=== PATIENT | male | born 1930 | race Caucasian/White ===

== ENCOUNTER 2016-09-23 04:08 | Inpatient (IN) | payer OTHER ==
--- NOTE | 2016-09-23 04:36 | EDPHY ---
H & P Stated Complaint: mid substernal CP beginning at 2100 last night Time Seen by Provider: 09/23/16 04:20 HPI/ROS: CHIEF COMPLAINT: Chest pain HISTORY OF PRESENT ILLNESS: Patient is an 86-year-old man whose brought him to the emergency department complaining of chest pain and shortness of breath. His symptoms began around 9:00 p.m. last night. He does have a history of chronic atrial fibrillation on Eliquis and placement of a single lead [place] pacemaker in April of last year. Also history of prostate cancer, hypertension, obstructive sleep apnea Graves disease. The patient states that he wears 2 L at home a baseline for a history of atrial fibrillation. He denies history of pulmonary disease. He has not had a fever. He did have a dry cough recently but it has now resolved. He has some mild lower extremity edema at baseline but it is not worsened. He was lying in bed getting ready asleep when it began. He did have a catheterization at some point but states that it was many years ago. REVIEW OF SYSTEMS: Constitutional: denies: chills, fever, recent illness, recent injury EENTM: denies: blurred vision, double vision, nose congestion Respiratory: See HPI Cardiac: See HPI Gastrointestinal/Abdominal: denies: abdominal pain, diarrhea, nausea, vomiting, blood streaked stools Genitourinary: denies: dysuria, frequency, hematuria, pain Musculoskeletal: denies: joint pain, muscle pain Skin: denies: lesions, rash, jaundice, bruising Neurological: denies: headache, numbness, paresthesia, tingling, dizziness, weakness Hematologic/Lymphatic: denies: blood clots, easy bleeding, easy bruising Immunologic/allergic: denies: HIV/AIDS, transplant EXAM: GENERAL: Lying in bed, mildly obese, HEAD: Atraumatic, normocephalic. EYES: Pupils equal round and reactive to light, extraocular movements intact, sclera anicteric, conjunctiva are normal. ENT: TMs normal, nares patent, oropharynx clear without exudates. Moist mucous membranes. NECK: Normal range of motion, supple without lymphadenopathy or JVD. LUNGS: Breath sounds clear to auscultation bilaterally and equal. No wheezes rales or rhonchi. HEART: Regular rate and rhythm without murmurs, rubs or gallops. ABDOMEN: Soft, nontender, normoactive bowel sounds. No guarding, no rebound. No masses appreciated. BACK: No CVA tenderness, no spinal tenderness, step-offs or deformities EXTREMITIES: Normal range of motion, no pitting or edema. No clubbing or cyanosis. NEUROLOGICAL: Cranial nerves II through XII grossly intact. Normal speech, normal gait. 5/5 strength, normal movement in all extremities, normal sensation PSYCH: Normal mood, normal affect. SKIN: Warm, dry, normal turgor, no visible rashes or lesions. 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 prostate CA, asthma. sz, asthma, a fib, pacemaker implanted - Family History Significant Family History: Hypertension - Social History Smoking Status: Never smoked Alcohol Use: Sober Drug Use: None Constitutional: Initial Vital Signs Temperature (C) 36.4 C 09/23/16 04:25 Heart Rate 69 09/23/16 04:25 Respiratory Rate 20 09/23/16 04:25 Blood Pressure 179/102 H 09/23/16 04:25 O2 Sat (%) 87 L 09/23/16 04:25 O2 Delivery Mode Nasal Cannula O2 (L/minute) 2 Allergies/Adverse Reactions: Sulfa (Sulfonamide Antibiotics) Allergy (Severe, Verified 05/15/16 22:15) Swelling/neck,face,throat sulfamethoxazole [From Bactrim] Allergy (Severe, Verified 05/15/16 22:15) Swelling/neck,face,throat trimethoprim [From Bactrim] Allergy (Severe, Verified 05/15/16 22:15) Swelling/neck,face,throat chloromycetin Allergy (Unknown, Uncoded 05/15/16 22:15) Unknown Home Medications: Medication Instructions Recorded Apixaban [Eliquis] 5 mg PO BID 02/26/16 Fluticasone Nasal [Flonase Nasal 2 sprays NASAL DAILY PRN 02/26/16 [place]] Methimazole [Tapazole 5MG (*)] 2.5 mg PO BID 05/15/16 lamoTRIgine [LamICTAL 100 MG (*)] 100 mg PO BID 05/15/16 Metoprolol Tartrate [Lopressor 25 12.5 mg PO BID #30 tab 05/17/16 mg (*)] Albuterol [Proventil Inhaler HFA 1 puffs IH Q6H PRN 09/23/16 (*)] Fluticasone Hfa 110 Mcg [Flovent 1 puffs IH DAILY PRN 09/23/16 110 MCG Hfa MDI (*)] Medical Decision Making - Diagnostics EKG Interpretation: An EKG obtained and was read and documented in trace view. Please see trace view for full reading and report. AFib versus paced rhythm with bundle branch block pattern with repolarization abnormality, not significantly changed from previous. A repeat EKG obtained and was read and documented in trace view. Please see trace view for full reading and report. AFib versus today ventricular rhythm with left bundle branch block and repolarization abnormality similar to previous Imaging: X-ray: chest x-ray was obtained. I viewed the images myself on the PACS system. My interpretation of the images is: Similar to previous. The radiologist interpretation is pending. ED Course/Re-evaluation: Patient's troponin is elevated. He is currently pain free. Will admit to the hospital for further workup and diagnostics. Discussed the case with Dr. Rosana Westfall who accepts admission. 5:55 a.m. the patient had a moment of chest pain they returned. A repeat EKG was completed which is unchanged. Differential Diagnosis: Partial list of the Differential diagnosis considered include but were not limited to; acute coronary disease, PE, arrhythmia, pneumonia and although unlikely based on the history and physical exam, I also considered pneumothorax , sepsis, pericardial tamponade, dissection. - Data Points Laboratory Results: Laboratory Results 09/23/16 04:20 09/23/16 04:20 Medications Given: Discontinued Medications Amlodipine Besylate (Norvasc) 2.5 mg PO DAILY [facility] Stop: 03/22/17 08:59 Last Admin: 09/24/16 10:36 Dose: Not Given Apixaban (Eliquis) 5 mg PO BID [facility] Stop: 03/22/17 10:29 Last Admin: 09/23/16 10:42 Dose: Not Given Aspirin (Aspirin) 325 mg PO EDNOW ONE Stop: 09/23/16 05:28 Last Admin: 09/23/16 05:34 Dose: Not Given Aspirin (Aspirin) 324 mg PO EDNOW ONE Stop: 09/23/16 05:34 Last Admin: 09/23/16 05:34 Dose: 324 mg Diazepam (Valium) 5 mg PO ONCALL ONE Stop: 09/23/16 13:38 Last Admin: 09/23/16 15:00 Dose: Not Given Diphenhydramine HCl (Benadryl) 25 mg PO ONCALL ONE Stop: 09/23/16 13:38 Last Admin: 09/23/16 15:00 Dose: Not Given Furosemide (Lasix Injection) 20 mg IVP ONCE ONE Stop: 09/24/16 09:22 Last Admin: 09/24/16 10:36 Dose: 20 mg Metoprolol Tartrate (Lopressor) 12.5 mg PO BID [facility] Stop: 03/22/17 05:59 Last Admin: 09/23/16 10:43 Dose: 12.5 mg Metoprolol Tartrate (Lopressor) 25 mg PO BID [facility] Stop: 03/22/17 20:59 Last Admin: 09/24/16 10:34 Dose: Not Given Nitroglycerin (Nitrostat) 0.4 mg SL ONCE ONE Stop: 09/23/16 13:02 Last Admin: 09/23/16 13:05 Dose: 1 tab Departure - Departure Disposition: [facility] Acute Clinical Impression: Chest pain Qualifiers: Qualifier Code: (R07.9) Chest pain, unspecified Condition: Fair
[2016-09-23 04:38] LABS: % IMMATURE GRANULYOCYTES 0.4 % (0.0-1.1); ABSOLUTE IMMATURE GRANULOCYTES 0.05 10^3/uL (0.00-0.10); ADD DIFF? NO; ADD MORPH? NO; ADD SCAN? NO; ATYPICAL LYMPHOCYTE FLAG 0 (0-99); FRAGMENT RBC FLAG 0 (0-99); HEMATOCRIT 43.2 % (40.0-51.0); HEMOGLOBIN 14.5 g/dL (13.7-17.5); LEFT SHIFT FLG 0 (0-99); LIPEMIA HEMOLYSIS FLAG 80 (0-99); MEAN CELL HEMOGLOBIN 30.1 pg (27.9-34.1); MEAN CELL HEMOGLOBIN CONCENTR. 33.6 g/dL (32.4-36.7); MEAN CELL VOLUME 89.8 fL (81.5-99.8); MEAN PLATELET VOLUME 11.1 fL (8.7-11.7); PLATELET CLUMPS FLAG 30 (0-99); PLATELET COUNT 229 10^3/uL (150-400); RED BLOOD CELL COUNT 4.81 10^6/uL (4.40-6.38); RED CELL DISTRIBUTION WIDTH 13.4 % (11.5-15.2)
[2016-09-23 04:46] LABS: ALANINE AMINOTRANSFERASE 35 IU/L (21-72); ALBUMIN 4.4 g/dL (3.5-5.0); ALKALINE PHOSPHATASE 89 IU/L (38-126); ANION GAP 10 mEq/L (8-16); ASPARTATE AMINOTRANSFERASE 34 IU/L (17-59); BILIRUBIN,TOTAL 1.8 mg/dL (0.1-1.4); BILIRUBIN-CONJUGATED 0.5 mg/dL (0.0-0.5); BILIRUBIN-UNCONJUGATED 1.3 mg/dL (0.0-1.1); CALCIUM 9.4 mg/dL (8.5-10.4); CARBON DIOXIDE 27 mEq/l (22-31); CHLORIDE 103 mEq/L (97-110); GLOMERULAR FILTRATION RATE > 60; GLUCOSE 115 mg/dL (70-100); POTASSIUM 4.4 mEq/L (3.5-5.2); SODIUM 140 mEq/L (134-144); TOTAL PROTEIN 7.1 g/dL (6.3-8.2)
[2016-09-23 04:50] LABS: INR 1.5 (0.83-1.16); PROTIME(PATIENT) 18.1 SEC (12.0-15.0)
[2016-09-23 04:51] LABS: APTT 32.3 SEC (23.0-38.0)
--- NOTE | 2016-09-23 04:51 | CPEKG ---
Heart Rate: 72 RR Interval: 833 QRSD Interval: 154 QT Interval: 432 QTC Interval: 473 QRS [place]: 117 T Wave [place]: -42 EKG Severity - ABNORMAL ECG - EKG Impression: ACCELERATED JUNCTIONAL RHYTHM EKG Impression: NONSPECIFIC INTRAVENTRICULAR CONDUCTION DELAY EKG Impression: EXTENSIVE ANTERIOR INFARCT, RECENT EKG Impression: Left bundle branch block, similar to previous Electronically Signed By: Los Lovell 23-Sep-2016 05:07:40
[2016-09-23 04:57] LABS: TROPONIN I 0.052 ng/mL (0-0.034)
[2016-09-23] MEDS ORDERED: ACETAMINOPHEN 325 MG TAB PO PRN (05:27)
[2016-09-23] MEDS ORDERED: ASPIRIN 325 MG TAB PO ONE (05:27)
[2016-09-23] MEDS ORDERED: ONDANSETRON 4 MG/2 ML VIAL IVP PRN (05:27)
[2016-09-23] MEDS ORDERED: ONDANSETRON DISINTEGRATING 4 MG TAB PO PRN (05:27)
[2016-09-23] MEDS ORDERED: ASPIRIN 81 MG CHEWABLE TAB ONE (05:30)
[2016-09-23] MEDS ORDERED: ASPIRIN 81 MG CHEWABLE TAB PO ONE (05:33)
--- NOTE | 2016-09-23 06:05 | CPEKG ---
Heart Rate: 68 RR Interval: 882 QRSD Interval: 150 QT Interval: 452 QTC Interval: 481 QRS [place]: 116 T Wave [place]: 22 EKG Severity - ABNORMAL ECG - EKG Impression: ATRIAL FIBRILLATION EKG Impression: VENTRICULAR PREMATURE COMPLEX EKG Impression: NONSPECIFIC INTRAVENTRICULAR CONDUCTION DELAY EKG Impression: EXTENSIVE ANTERIOR INFARCT, RECENT Electronically Signed By: Los Lovell 23-Sep-2016 06:13:43
[2016-09-23] MEDS: NITROGLYCERIN 2% 1 GM PACKET TP SCH ×3 (06:28→19:11)
[2016-09-23] MEDS ORDERED: NITROGLYCERIN 2% 1 GM PACKET ONE (06:28)
[2016-09-23 06:47] LABS: CHOLESTEROL 182 mg/dL (140-220); CHOLESTEROL/HDL RATIO 2.89 RATIO (1.00-4.97); HIGH DENSITY LIPOPROTEIN 63 mg/dL (40-65); LOW DENSITY LIPOPROTEIN 107 mg/dL (80-100); NON-HIGH DENSITY LIPOPROTEIN 119 mg/dL (90-129); TRIGLYCERIDE 61 mg/dL (40-150); VERY LOW DENSITY LIPOPROTEINS 12 mg/dL (8-25)
[2016-09-23] MEDS ORDERED: MAALOX/LIDO/HYOSC GI COCKTAIL 55 ML BOTTLE PO PRN (06:59)
--- NOTE | 2016-09-23 07:04 | PDGENHP ---
History and Physical - Chief Complaint chest pain - History of Present Illness 86 yo male with h/o A fib and sick sinus syndrome with recent pacemaker placement in 04/2016 presents to ED with chest pressure. This started yesterday at 4 pm while at rest. He describes the pain as feeling like a ball stuck in his chest. No radiation. No associated nausea or diaphoresis. He does reports associated SOB. He uses nocturnal O2 at home at 2 LPM due to h/o sleep apnea. He denies pleuritic chest pain. He is more hoarse than usual. Denies other symptoms of indigestion. No fevers, chills, headache, vision changes, abdominal pain or N/V/D. In the ED, his EKG is unchanged from prior, LBBB is present. His initial troponin is slightly elevated at 0.052. He is admitted to the hospital for further evaluation. History Information - Allergies/Home Medication List Allergies/Adverse Reactions: Sulfa (Sulfonamide Antibiotics) Allergy (Severe, Verified 05/15/16 22:15) Swelling/neck,face,throat sulfamethoxazole [From Bactrim] Allergy (Severe, Verified 05/15/16 22:15) Swelling/neck,face,throat trimethoprim [From Bactrim] Allergy (Severe, Verified 05/15/16 22:15) Swelling/neck,face,throat chloromycetin Allergy (Unknown, Uncoded 05/15/16 22:15) Unknown Home Medications: Amlodipine Besylate [Norvasc] 2.5 mg PO DAILY 02/26/16 [Last Taken 05/15/16] Apixaban [Eliquis] 5 mg PO BID 02/26/16 [Last Taken 05/15/16 08:00] Fluticasone Nasal [Flonase Nasal [place]] 2 sprays NASAL DAILY PRN 02/26/16 [Last Taken 01/29/16 09:00] Methimazole [Tapazole 5MG (*)] 2.5 mg PO DAILY 05/15/16 [Last Taken 05/15/16] lamoTRIgine [LamICTAL 100 MG (*)] 100 mg PO BID 05/15/16 [Last Taken 05/15/16 08 :00] I have personally reviewed and updated: family history, medical history, social history, surgical history - Past Medical History atrial fibrillation, hypertension, hyperlipidemia Additional medical history: sleep apnea, hyperthyroids / graves disease, sick sinus syndrome - Surgical History Additional surgical history: pacemaker placement 04/2016 - Family History Positive for: non-pertinent - Social History Smoking Status: Never smoked Alcohol Use: None Drug Use: None Review of Systems ROS: 10pt was reviewed & negative except for what was stated in HPI & below Physical Exam Temp Pulse Resp BP Pulse Ox 36.4 C 65 20 165/97 H 94 09/23/16 04:25 09/23/16 06:51 09/23/16 06:51 09/23/16 06:51 09/23/16 06:51 Constitutional: no apparent distress Eyes: PERRL Ears, Nose, Mouth, Throat: moist mucous membranes Cardiovascular: regular rate and rhythym, no murmur, rub, or gallop Respiratory: no respiratory distress, clear to auscultation Gastrointestinal: normoactive bowel sounds, soft, non-tender abdomen Skin: warm Musculoskeletal: full muscle strength Neurologic: AAOx3 Psychiatric: interacting appropriately Lab Data & Imaging Review 09/23/16 04:20 09/23/16 04:20 WBC 11.35 10^3/uL (3.80-9.50) H 09/23/16 04:20 RBC 4.81 10^6/uL (4.40-6.38) 09/23/16 04:20 Hgb 14.5 g/dL (13.7-17.5) 09/23/16 04:20 Hct 43.2 % (40.0-51.0) 09/23/16 04:20 MCV 89.8 fL (81.5-99.8) 09/23/16 04:20 MCH 30.1 pg (27.9-34.1) 09/23/16 04:20 MCHC 33.6 g/dL (32.4-36.7) 09/23/16 04:20 RDW 13.4 % (11.5-15.2) 09/23/16 04:20 Plt Count 229 10^3/uL (150-400) 09/23/16 04:20 MPV 11.1 fL (8.7-11.7) 09/23/16 04:20 Neut % (Auto) 78.8 % (39.3-74.2) H 09/23/16 04:20 Lymph % (Auto) 12.1 % (15.0-45.0) L 09/23/16 04:20 [place] % (Auto) 5.8 % (4.5-13.0) 09/23/16 04:20 Eos % (Auto) 2.2 % (0.6-7.6) 09/23/16 04:20 Baso % (Auto) 0.7 % (0.3-1.7) 09/23/16 04:20 Nucleat RBC Rel Count 0.0 % (0.0-0.2) 09/23/16 04:20 Absolute Neuts (auto) 8.94 10^3/uL (1.70-6.50) H 09/23/16 04:20 Absolute Lymphs (auto) 1.37 10^3/uL (1.00-3.00) 09/23/16 04:20 Absolute Monos (auto) 0.66 10^3/uL (0.30-0.80) 09/23/16 04:20 Absolute Eos (auto) 0.25 10^3/uL (0.03-0.40) 09/23/16 04:20 Absolute Basos (auto) 0.08 10^3/uL (0.02-0.10) 09/23/16 04:20 Absolute Nucleated RBC 0.00 10^3/uL (0-0.01) 09/23/16 04:20 Immature Gran % 0.4 % (0.0-1.1) 09/23/16 04:20 Immature Gran # 0.05 10^3/uL (0.00-0.10) 09/23/16 04:20 PT 18.1 SEC (12.0-15.0) H 09/23/16 04:20 INR 1.50 (0.83-1.16) H 09/23/16 04:20 APTT 32.3 SEC (23.0-38.0) 09/23/16 04:20 Sodium 140 mEq/L (134-144) 09/23/16 04:20 Potassium 4.4 mEq/L (3.5-5.2) 09/23/16 04:20 Chloride 103 mEq/L (97-110) 09/23/16 04:20 Carbon Dioxide 27 mEq/l (22-31) 09/23/16 04:20 Anion Gap 10 mEq/L (8-16) 09/23/16 04:20 BUN 20 mg/dL (7-23) 09/23/16 04:20 Creatinine 1.0 mg/dL (0.7-1.3) 09/23/16 04:20 Estimated GFR > 60 09/23/16 04:20 Glucose 115 mg/dL (70-100) H 09/23/16 04:20 Calcium 9.4 mg/dL (8.5-10.4) 09/23/16 04:20 Total Bilirubin 1.8 mg/dL (0.1-1.4) H 09/23/16 04:20 Conjugated Bilirubin 0.5 mg/dL (0.0-0.5) 09/23/16 04:20 Unconjugated Bilirubin 1.3 mg/dL (0.0-1.1) H 09/23/16 04:20 AST 34 IU/L (17-59) 09/23/16 04:20 ALT 35 IU/L (21-72) 09/23/16 04:20 Alkaline Phosphatase 89 IU/L (38-126) 09/23/16 04:20 Troponin I 0.052 ng/mL (0-0.034) H 09/23/16 04:20 Total Protein 7.1 g/dL (6.3-8.2) 09/23/16 04:20 Albumin 4.4 g/dL (3.5-5.0) 09/23/16 04:20 Triglycerides 61 mg/dL (40-150) 09/23/16 04:20 Cholesterol 182 mg/dL (140-220) 09/23/16 04:20 Cholesterol Risk Factr 0.5 (0.2-1.0) 09/23/16 04:20 LDL Cholesterol, Calc 107 mg/dL (80-100) H 09/23/16 04:20 LDL Risk Factor 0.8 (0.2-1.0) 09/23/16 04:20 VLDL Cholesterol 12 mg/dL (8-25) 09/23/16 04:20 Non-HDL Cholesterol 119 mg/dL (90-129) 09/23/16 04:20 HDL Cholesterol 63 mg/dL (40-65) 09/23/16 04:20 LDL/HDL Ratio 1.70 RATIO (1.00-3.64) 09/23/16 04:20 Cholesterol/HDL Ratio 2.89 RATIO (1.00-4.97) 09/23/16 04:20 Lipase 43.0 IU/L (23-300) 09/23/16 04:20 Assessment & Plan Assessment: Chest pain - His cardiac risk factors include hypertension, hyperlipidemia, age and gender. He is chest pain free at this time. EKG is unchanged from prior, but difficult to interpret with LBBB. His initial troponin is elevated at 0.052. -trend troponin, repeat EKG -keep npo until next trop in case he needs angiogram -ASA, BB, statin -nitro-bid and prn morphine for pain -he is anti-coagulated on eliquis -cardiology consult planned -also considered GERD and will try GI cocktail and pepcid A fib - rate controlled on metoprolol. continue eliquis. Hypertension - will give outpt metoprolol and norvasc along with nitroglycerin. 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
[2016-09-23] MEDS ORDERED: METOPROLOL TARTRATE 25 MG TAB ONE (08:12)
--- NOTE | 2016-09-23 08:16 | DX ---
Chest, PA and Lateral History: Epigastric pain and pressure Comparison: May 17, 2016 Findings: There is new left lower lobe consolidation with what is likely a small pleural effusion. Ca rdiomegaly remains along with an excellently positioned unipolar pacer device. The pulmonary vascular ity is not particularly plethora. There may be a tiny right pleural effusion. Lung volumes remain lar ge consistent with underlying COPD. Impression: 1. Suspect left lower lobe pneumonia. 2. Compensated CHF.
[2016-09-23] MEDS: ATORVASTATIN CALCIUM 40 MG TAB PO SCH ×2 (08:20→09:07)
[2016-09-23] MEDS ORDERED: FAMOTIDINE 20 MG TAB ONE ×2 (08:23→09:04)
[2016-09-23] MEDS ORDERED: APIXABAN 5 MG TAB PO SCH ×2 (09:00→10:30)
[2016-09-23] MEDS: FAMOTIDINE 20 MG TAB PO SCH ×2 (09:03→20:46)
[2016-09-23] MEDS ORDERED: ALBUTEROL 60 PUFFS/8 GM MDI IH PRN (10:02)
[2016-09-23] MEDS ORDERED: FLUTICASONE HFA 110 MCG MDI IH PRN (10:02)
[2016-09-23] MEDS ORDERED: FLUTICASONE NASAL 120 SPRAYS/16 GM MDI EACHNARE PRN (10:02)
[2016-09-23] MEDS: METOPROLOL TARTRATE 25 MG TAB PO SCH ×3 (10:43→20:46)
--- NOTE | 2016-09-23 10:43 | ECHO ---
[id number] + + [address] : : [place] [address] : : [phone] + Adult Echocardiographic Report + --------+ :Name: WILI ROMERO EStudy Date: 09/23/2016 09:11 AM : : Hospital Admission Number: [id number] Locati on: ER11: :: 1930 Gender: Male Height: 69 in : :Age: 86 yrs Race: WH Weight: 192 lb : :Reason For Study: Eval LV Fx : : BSA: 2.0 meter s2 : :History: Chest Pain, Positive Troponins : + --------+ MMode/2D Measurements & Calculations IVSd: 1.3 cm LVIDd: 5.3 cm FS: 14.8 % Ao root diam: LVPWd: 1.4 cm LVIDs: 4.5 cm EDV(Teich): 3.5 cm 136.5 ml ACS: 1.7 cm ESV(Teich): 93.9 ml EF(Teich): 31.2 % LVLd ap4: 8.0 cm SV(MOD-sp4): EDV(MOD-sp4): 30.0 ml 112.0 ml LVLs ap4: 7.0 cm ESV(MOD-sp4): 82.0 ml EF(MOD-sp4): 26.8 % Normal Measurement Values: + + :LVIDd (3.5-5.7cm) IVSd (0.6-1.1cm) LVPWd (0.6-1.1cm) Aortic Root (2.0-3.7cm)Left Atrium (1.5-4.0cm): :LV Vol(d) (76-115ml) LV Vol(s) (29-48ml) Ejec Fraction (50-65%)PV [place] (0.6- 1.2m/s) TV [place]ur (0.4-1.0m/s) : :MV E [place] (0.8-1.0m/s)MV A [place] (0.3-1.0m/s)LVOT [place] (0.7-1.2m/s) Asc Ao Mayur ( 0.9-1.8m/s) : + + Doppler Measurements & Calculations Ao V2 max: AI max mayur: LV V1 max: PA V2 max: 141.0 cm/sec 413.0 cm/sec 53.3 cm/sec 80.1 cm/sec Ao max P.0 mmHgAI max P.2 mmHg LV V1 max PG: PA max PG: AI dec slope: 1.1 mmHg 2.6 mmHg 143.0 cm/sec2 AI P1/2t: 845.9 msec TR max mayur: 305.0 cm/sec TR max P.2 mmHg RAP systole: 5.0 mmHg RVSP(TR): 42.2 mmHg Left Ventricle The left ventricle is normal in size. There is mild concentric left ventricular hypertrophy. There is Doppler evidence for diastolic dysfunction. Ejection Fraction = 30 to 35%. The basal and mid anteroseptum and posterior segmetns are hypokinetic. Right Ventricle There is a pacemaker lead in the right ventricle. The right ventricle is normal in size and function. Atria The left atrium is mildly dilated. Right atrial size is normal. Mitral Valve The mitral valve is normal. There is no mitral valve stenosis. There is trace to mild mitral regurgitation. Tricuspid Valve There is trace to mild tricuspid regurgitation. Right ventricular systolic pressure is 42mmHg. There is Doppler evidence for mild pulmonary hypertension. Aortic Valve There is mild aortic valve calcification. There is no aortic stenosis. Mild aortic regurgitation. Pulmonic Valve The pulmonic valve is not well visualized. There is no pulmonic valvular regurgitation. Great Vessels The aortic root is normal size. Pericardium/Pleural There is no pericardial effusion. There is a small pleural effusion. Conclusion A complete two-dimensional transthoracic echocardiogram was performed (2D, M-mode, Doppler and color flow Doppler). 1. The left ventricle is normal in size. There is mild concentric left ventricular hypertrophy. The Ejection Fraction = 30 to 35%. The basal and mid anteroseptum and posterior segmetns are hypokinetic. 2. The left atrium is mildly dilated. 3. The mitral valve is normal. There is trace to mild mitral regurgitation. 4. There is mild aortic valve calcification. There is no aortic stenosis. Mild aortic regurgitation. 5. Right ventricular systolic pressure is 42mmHg. 6. No old studies for comparison. Final Reading Physician: Ronald Pace MD electronically signed on 09/23/2016 10:42 AM Ordering Physician: Rosana Westfall Performed By: Petr Rod, DENISSECS
[2016-09-23] MEDS: lamoTRIgine 100 MG TAB PO SCH ×2 (11:42→20:47)
--- NOTE | 2016-09-23 12:02 | GCON ---
[f rep st] CONSULTATION DATE OF CONSULTATION: 09/23/2016 REASON FOR CONSULTATION: We have been asked by Dr. Westfall to evaluate this patient with a chief com plaint of chest pain. HISTORY OF PRESENT ILLNESS: The patient is an 86-year-old gentleman with risk factors including age and hypertension, who presents with a chief complaint of chest pain. The patient was in his usual st ate of health until the day prior to admission, when he began to experience chest pain. The chest pa in was described above as a ball being stuck in the center of his chest. The chest pain did not radi ate. It was not associated with nausea, vomiting and diaphoresis. Patient reports that the chest pa in was initially at a very low level. At approximately 2 a.m. when he woke up in bed, he began to ex perience more significant chest discomfort, prompting him to seek further evaluation. On arrival in the emergency department, he had an EKG performed, demonstrating atrial fibrillation with a paced rhy thm. His initial troponin was mildly elevated at 0.052. Patient became pain-free while in the emerg ency department. We have been consulted to help in the further management of this patient. Patient reports a fairly limited physical activity at home. He does get up and go grocery shopping and does some walking around the house. He typically denies symptoms of chest discomfort with this activity. There is no history of orthopnea or PND. Patient does report a history of atrial fibrillation and i s status post pacemaker placement. He is currently on oral anticoagulation for his atrial fibrillati on. PAST MEDICAL HISTORY: 1. Hypertension. 2. Atrial fibrillation. 3. Obstructive sleep apnea. 4. 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 5. Peripheral neuropathy. 6. Degenerative joint disease. MEDICATIONS: 1. Eliquis. 2. Flonase. 3. Lamictal. 4. Methimazole. 5. Metoprolol. 6. ProAir. ALLERGIES: 1. Chloramphenicol. 2. Sulfonamide. SOCIAL HISTORY: Patient lives with his . He does not smoke. FAMILY HISTORY: Noncontributory. REVIEW OF SYSTEMS: A 10-point review of systems is negative except as noted in HPI. PHYSICAL EXAM: GENERAL: Patient is resting comfortably in bed at this time. He does not appear to be in acute distress. VITAL SIGNS: Temperature is afebrile. Pulse is 78, blood pressure 147/101, r espiratory rate 18, SaO2 98% on 2 L nasal cannula. HEENT: Patient wears glasses. Normocephalic, at raumatic. Extraocular muscles intact. NECK: No bruits auscultated. LUNGS: Clear to auscultation bilaterally. CARDIOVASCULAR: Regular rate and rhythm. S1, S2. No murmurs, rubs or gallops. ABDOM EN: Soft, nontender. Normoactive bowel sounds. No hepatosplenomegaly noted. Aorta could not be ad equately palpated. EXTREMITIES: Left greater than right lower extremity edema. SKIN: Evidence of stasis on the pretibial surfaces. NEUROLOGIC: Patient is awake, alert and oriented x3. LABORATORY: White blood cell count 11.35, hemoglobin 14.5, hematocrit 43.2, platelet count 229. INR 1.50. Sodium 140, potassium 4.4, chloride 103, CO2 27, BUN 20, creatinine 1.0. Troponin 0.052 to 0 .043. LDL is mildly elevated at 107. EKG demonstrates atrial fibrillation with paced rhythm. Bedside echocardiogram demonstrates normal l eft ventricular size with evidence of left ventricular hypertrophy. There is segmental wall motion a bnormality involving the anterior septum as well as posterior wall. ASSESSMENT AND PLAN: The patient is an 86-year-old gentleman with: 1. Acute coronary syndrome. Patient presents with an acute coronary syndrome. He is currently pain -free at this time. His EKG demonstrates a paced rhythm. His initial troponin is mildly elevated at 0.052. His subsequent troponin has decreased to 0.043. His echocardiogram was notable for reduced left ventricular systolic function with multiple segmental wall motion abnormalities. Reviewed risks and benefits of cardiac catheterization for further risk stratification with the patient and his wif e. Will arrange to have this performed. Ideally, this would occur after his Eliquis is washed out t o reduce his bleeding risk. Anticipate performing the procedure on Tuesday afternoon versus Tuesday. Would consider urgent angiogram for recurrent symptoms. 2. Hypertension. The patient is currently moderately hypertensive. We will plan on increasing his metoprolol for improved blood pressure control. 3. Hyperlipidemia. Patient's LDL cholesterol is 107. Based on the probable presence of coronary ar cristo disease, ideal LDL would be less than 70. We will plan on initiating statin therapy. /[id number]/MODL
[2016-09-23] MEDS ORDERED: NITROGLYCERIN 0.4 MG BTL SL ONE ×2 (13:01)
[2016-09-23] MEDS ORDERED: ALBUTEROL 3 ML DEYVIAL IH PRN (13:02)
--- NOTE | 2016-09-23 13:07 | CPEKG ---
Heart Rate: 65 RR Interval: 923 QRSD Interval: 150 QT Interval: 452 QTC Interval: 470 QRS [place]: 118 EKG Severity - ABNORMAL ECG - EKG Impression: ATRIAL FIBRILLATION, V-RATE 64-65 EKG Impression: NONSPECIFIC INTRAVENTRICULAR CONDUCTION DELAY EKG Impression: LATERAL INFARCT, AGE INDETERMINATE EKG Impression: ST ELEVATION, PROBABLE ANTERIOR INJURY Electronically Signed By: Pepe Brink 23-Sep-2016 18:15:55
[2016-09-23] MEDS ORDERED: NITROGLYCERIN/D5W/250 ML BOTTLE IV ONE (13:29)
[2016-09-23] MEDS ORDERED: DIAZEPAM 5 MG TAB PO ONE (13:37)
[2016-09-23] MEDS ORDERED: TEMAZEPAM 15 MG CAP PO PRN (13:37)
[2016-09-23] MEDS ORDERED: diphenhydrAMINE 25 MG CAP PO ONE (13:37)
--- NOTE | 2016-09-23 13:37 | HOSPPROG ---
Hospitalist Progress Note Assessment/Plan: 86 yo M w/hx of a fib/sss s/p PM presenting with chest pain and elevated trop # ACS: with left sided chest pain and trop elevation on admission, trop trending down, but pain has returned with even minor exertion. ECG personally reviewed, dynamic changes noted on ecg with e/o anterior infarct and st elevation. Cardiology consulted with plans for medical management for now and cath in coming 1-2 days, however given recurrent chest pain, may need to be sooner # chest pain: as above, nitro and morphine prn pain, will consider nitro gtt if continues # a fib/sss: with PPM in place, ecg personally reviewed and interpreted as above , continue metoprolol # chronic medical issues: htn, hld # dispo: IP status, high risk given presenting issues Objective: Vital Signs Temp Pulse Resp BP Pulse Ox 36.8 C 77 22 H 162/95 H 95 09/23/16 12:18 09/23/16 12:18 09/23/16 12:18 09/23/16 12:18 09/23/16 12:18 PT 18.1 SEC (12.0-15.0) H 09/23/16 04:20 INR 1.50 (0.83-1.16) H 09/23/16 04:20 ICD10 Worksheet Patient Problems: Problems Problem Status Diagnosed Chest pain Acute Near syncope Acute Sick sinus syndrome Acute
[2016-09-23] MEDS ORDERED: LIDOCAINE 1% 30 ML SDV ONE (13:38)
[2016-09-23] MEDS ORDERED: MIDAZOLAM 2 MG/2 ML VIAL ONE (13:39)
[2016-09-23] MEDS ORDERED: fentaNYL 100 MCG/2 ML INJ ONE (13:39)
[2016-09-23] MEDS ORDERED: IOPAMIDOL (ISOVUE-370) 150 ML BTL IV ONE (13:39)
[2016-09-23] MEDS ORDERED: NS 1,000 ML IV SCH (13:45)
--- NOTE | 2016-09-23 13:56 | CPEKG ---
Heart Rate: 103 RR Interval: 583 QRSD Interval: 84 QT Interval: 360 QTC Interval: 471 QRS [place]: -31 T Wave [place]: 16 EKG Severity - ABNORMAL ECG - EKG Impression: ATRIAL FIBRILLATION, V-RATE 79-115 EKG Impression: LEFT AXIS DEVIATION EKG Impression: CONSIDER ANTERIOR INFARCT Electronically Signed By: Herminio Richards 23-Sep-2016 15:00:51
[2016-09-23] MEDS ORDERED: ONDANSETRON 4 MG/2 ML VIAL ONE (13:59)
[2016-09-23] MEDS ORDERED: NITROGLYCERIN/DEXTROSE 250 ML IV SCH (14:00)
[2016-09-23] MEDS ORDERED: METOCLOPRAMIDE 10 MG/2 ML VIAL ONE (14:00)
[2016-09-23] MEDS ORDERED: FUROSEMIDE 20 MG/2 ML VIAL ONE ×2 (14:20→14:21)
--- NOTE | 2016-09-23 14:58 | CPIP ---
[f rep st] INVASIVE CARDIAC PROCEDURE DATE OF PROCEDURE: 09/23/2016 PROCEDURES: 1. Coronary angiography. 2. Left ventriculography. INDICATION: Acute coronary syndrome with elevated troponin. ACCESS: The patient was prepped and draped in sterile fashion. 1% lidocaine was used to anesthetize the right inguinal region. A 6-Tai[place]ese introducer sheath was placed selectively into the right commo n femoral artery via modified Seldinger technique. CORONARY ANGIOGRAPHY: A 6-[place] JL4 was advanced through the left main coronary artery and images o btained. The left main coronary artery bifurcated into an LAD and circumflex coronary arteries. The left main coronary artery was short and appeared normal. The left anterior descending coronary arlyn ry gave rise to 3 diagonal branches. The 1st 2 diagonal branches were relatively small. The 3rd henry gonal branch was a large branch. Interestingly enough, the septal perforated came off the 3rd diagon al branch. The left anterior descending coronary artery had mild diffuse disease throughout. There was no stenosis greater than 15%. The first diagonal artery had an ostial 50% stenosis present. The first diagonal artery was small, less than 1.5 mm in diameter. The 2nd diagonal artery was also sma ll, less than 1.5 mm in diameter and also had what appeared to be a 50% stenosis present. The 3rd di agonal artery was a large vessel. The 3rd diagonal artery had a segmental 30% stenosis in the proxim al segment. The circumflex coronary artery was a large vessel. The circumflex coronary artery appea red free of any significant disease. The 1st OM artery was a large vessel. The 1st OM artery had a proximal segmental 30% stenosis present. A 6-[place]ai[place]ese JR4 was advanced through the right coronary arlyn ry and images obtained. The right coronary artery was dominant. The right coronary artery had mild diffuse disease throughout. There was no stenosis greater than 20%. LEFT VENTRICULOGRAPHY: A 6-Taiwanese pigtail catheter was advanced in the left ventricle. There was ob tained left ventricle was normal in size with reduced systolic function. The estimated ejection frac tion was 20-25%. There were multiple segmental wall motion abnormalities, most prominently in the an terolateral and inferior segments. COMPLICATIONS: None. CONCLUSIONS: 1. Mild to moderate coronary artery disease without flow limitation. 2. Severely reduced left ventricular systolic function with multiple segmental wall motion abnormali ties. 3. Elevated left ventricular end-diastolic pressure of 36 mmHg. /[id number]/MODL
--- NOTE | 2016-09-23 16:46 | CPEKG ---
Heart Rate: 57 RR Interval: 1053 QRSD Interval: 138 QT Interval: 484 QTC Interval: 472 QRS [place]: 52 T Wave [place]: 118 EKG Severity - ABNORMAL ECG - EKG Impression: ATRIAL FIBRILLATION EKG Impression: IVCD, CONSIDER ATYPICAL LBBB EKG Impression: PROBABLE LVH WITH SECONDARY REPOL ABNRM EKG Impression: ANTERIOR Q WAVES, POSSIBLY DUE TO LVH Electronically Signed By: Pepe Brink 23-Sep-2016 18:15:27
[2016-09-23] MEDS: METHIMAZOLE 5 MG TAB PO SCH (20:46)
[2016-09-24] MEDS: NITROGLYCERIN 2% 1 GM PACKET TP SCH ×5 (00:16→18:56)
[2016-09-24] MEDS ORDERED: FUROSEMIDE 20 MG/2 ML VIAL IVP ONE (09:21)
[2016-09-24] MEDS: METHIMAZOLE 5 MG TAB PO SCH ×2 (10:33→21:50)
[2016-09-24] MEDS: METOPROLOL TARTRATE 25 MG TAB PO SCH (10:34)
[2016-09-24] MEDS: lamoTRIgine 100 MG TAB PO SCH ×2 (10:34→21:51)
[2016-09-24] MEDS: ATORVASTATIN CALCIUM 40 MG TAB PO SCH (10:35)
[2016-09-24] MEDS: FAMOTIDINE 20 MG TAB PO SCH ×2 (10:35→21:50)
[2016-09-24] MEDS: ASPIRIN 81 MG CHEWABLE TAB PO SCH (10:36)
[2016-09-24 11:37] LABS: ANION GAP 8 mEq/L (8-16); CALCIUM 9.1 mg/dL (8.5-10.4); CARBON DIOXIDE 27 mEq/l (22-31); CHLORIDE 104 mEq/L (97-110); CREATININE 0.9 mg/dL (0.7-1.3); GLOMERULAR FILTRATION RATE > 60; GLUCOSE 131 mg/dL (70-100); POTASSIUM 4.2 mEq/L (3.5-5.2); SODIUM 139 mEq/L (134-144)
[2016-09-24 11:46] LABS: % SATURATION 9 % (20-55); TOTAL IRON BINDING CAPACITY 252 ug/dL (260-490)
--- NOTE | 2016-09-24 12:55 | SOAPPROG ---
SOAP Progress Note Assessment/Plan: Assessment: CHF consultation performed and dictated. See dictation for full thoughts. 86 y/o man with permanent afib and echo in 08/12 showing LVEF 60% and cardiolite stress test 08/12 showing LVEF 46%. Got PPM 05/14 for bradyarrhythmias. He reports he hasn't felt well for last seven months with imbalance, GROSS at 10-20ft, CP and weak. No wt change, PND or syncope. Admitted yesterday with CP and borderline troponin elevation. Echo 09/14 shows LVEF 32% with moderate LVH, mild AI/MR and TR with estimated PAS 42mmHg. LHC yesterday shows mild-moderate non-obstructive CAD with LVEDP 36mmHg. No RHC done. On exam he appears moderately hypervolemic not having CP. REC: 1)stop Amlodipine and start on low dose Coreg and Lisinopril (done this AM). 2)lasix 20mg IV BID 3)Aldactone 25mg PO daily. 4)qAM BMP 5)check random cortisol level for possible adrenal insufficiency contributing to tiredness and low BP 6)check BNP level and TSH with morning labs 7)I suspect he is holding onto 5-7lbs of excess water through body. Probably IV lasix 1-2 more days then change to PO Lasix and home Tuesday PM or Tuesday. 8)will arrange close follow up in [facility] 5-7 days from discharge. 9)PPM check making sure no tachyarrhythmias such as Afib or PMT that could have caused acute decline in LVEF but on tele is in afib in 60-70's. Thanks. 09/24/16 12:48 Objective: Vital Signs Temp Pulse Resp BP Pulse Ox 36.6 C 65 21 H 142/76 H 95 09/24/16 08:00 09/24/16 08:00 09/24/16 08:00 09/24/16 08:00 09/24/16 08:00 Laboratory Results 09/24/16 10:15 09/23/16 09/24/16 09/25/16 05:59 05:59 05:59 Intake Total 396 Output Total 675 Balance -279 PT 18.1 SEC (12.0-15.0) H 09/23/16 04:20 INR 1.50 (0.83-1.16) H 09/23/16 04:20 ICD10 Worksheet Patient Problems: Problems Problem Status Diagnosed Chest pain Acute Near syncope Acute Sick sinus syndrome Acute
[2016-09-24] MEDS: SPIRONOLACTONE 25 MG TAB PO SCH (15:00)
--- NOTE | 2016-09-24 15:05 | HOSPPROG ---
Hospitalist Progress Note Assessment/Plan: 86 yo M w/hx of a fib/sss s/p PM presenting with chest pain and elevated trop # ACS: with left sided chest pain and trop elevation on admission, dynamic ecg changes. s/p cath with diffuse non obstructive cad found, no intervention. Currently cp free, on nitro gtt. # acute systolic heart failure: with most recent EF of 30%, slightly volume overloaded on exam, continue on IV lasix and aldactone for now # permanent a fib/sss: with PPM in place, switched from metoprolol to carvedilol # gait instability/fatigue: patient notes this has been going on for months, pt to evaluate, random cortisol and tsh ordered, will add b12 and hgb a1c. When he is stronger will evaluate his gait to determine if other studies indicated # cad: non obstructive disease noted on cath # htn: bb, lisinopril and dc amlodipine # hld: continue statin # dispo: IP status, high risk given presenting issues Subjective: s/p cardiac cath yesterday, currently chest pain free, eating and feeling fine Objective: Vital Signs Temp Pulse Resp BP Pulse Ox 35.6 C L 68 19 131/78 H 3 L 09/24/16 14:16 09/24/16 14:16 09/24/16 14:16 09/24/16 14:16 09/24/16 14:16 Laboratory Results 09/24/16 10:15 09/23/16 09/24/16 09/25/16 05:59 05:59 05:59 Intake Total 396 Output Total 675 Balance -279 PT 18.1 SEC (12.0-15.0) H 09/23/16 04:20 INR 1.50 (0.83-1.16) H 09/23/16 04:20 awake alert nad anicteric op clear rrr systolic murmur cta dec bs at bases soft nt nd 1+ ble edema warm dry well perfused oriented appropriate - Time Spent With Patient Time Spent with Patient: greater than 35 minutes Time Spent with Patient: Greater than 35 minutes spent on this patients care, greater than 50% of time spent counseling, educating, and coordinating care regarding the above mentioned plan. ICD10 Worksheet Patient Problems: Problems Problem Status Diagnosed Chest pain Acute Near syncope Acute Sick sinus syndrome Acute
--- NOTE | 2016-09-24 15:09 | SOAPPROG ---
BHARAT Progress Note Assessment/Plan: 1. NICM - Pt presents with a new diagnosis of a NICM - His LVEF is approximately 25 to 30% with multiple segmental wall motion abnormalities. Angiogram on 09/23 with moderate non-obstructive CAD. Echocardiogram on 09/23 with no significant valvular abnormalities. Pt is s/p recent pacemaker placement for SSS. ? related to A-fib vs pacemaker vs other. --> Pacemaker base rate decreased on 09/23 to 45 BPM --> TSH, Fe, TIBC, and Ferretin ordered --> Consult Dr. Mccallum 2. CHF - Pt presents with acute systolic CHF exacerbation. Precipitating factors are unclear at this time. Symptoms improved with IV NTG and diuresis. --> Change metoprolol to coreg --> DC amlodipine and start lisinopril --> Continue diuresis 3. CAD - Pt has mild to moderate CAD with out flow limitation. --> Continue secondary prevention with asa, coreg, lisinopril, and atorvastatin. Subjective: No chest pain since admit Dyspnea improved limited ambulation Objective: Vital Signs Temp Pulse Resp BP Pulse Ox 35.6 C L 68 19 131/78 H 3 L 09/24/16 14:16 09/24/16 14:16 09/24/16 14:16 09/24/16 14:16 09/24/16 14:16 Laboratory Results 09/24/16 10:15 09/23/16 09/24/16 09/25/16 05:59 05:59 05:59 Intake Total 396 Output Total 675 Balance -279 PT 18.1 SEC (12.0-15.0) H 09/23/16 04:20 INR 1.50 (0.83-1.16) H 09/23/16 04:20 Physical Exam - Physical Exam General Appearance: alert, no apparent distress Respiratory: crackles Cardiac/Chest: diastolic murmur, irregularly irregular Abdomen: normal bowel sounds, non-tender, soft Skin: normal color Extremities: pedal edema, other (No hematoma or echymosis) Neuro/Psych: alert ICD10 Worksheet Patient Problems: Problems Problem Status Diagnosed Chest pain Acute Near syncope Acute Sick sinus syndrome Acute
[2016-09-24] MEDS: FUROSEMIDE 20 MG/2 ML VIAL IVP SCH (17:36)
--- NOTE | 2016-09-24 17:40 | GCON ---
[f rep st] CONSULTATION CHF CONSULT. DATE OF CONSULTATION: 09/24/2016 REASON FOR CONSULTATION: Evaluate gentleman with acute systolic heart failure and decompensated syst olic heart failure, and recommend future CHF management. HISTORY OF PRESENT ILLNESS: I was asked by Dr. Ronald Pace to consult for the above reasons. The pa fede is an 86-year-old gentleman with longstanding history of hypertension. He had an echo in Decem 2014, which demonstrated an LVEF of 60% with mild aortic, mitral, and tricuspid insufficiency. A Cardiolite stress test in July of 2015 suggested an LVEF of 46%. He has permanent atrial fib rillation and in April of 2016, got a permanent pacemaker for concurrent sick sinus syndrome. He reports he has not been feeling well for about the last 7 months with chronic gait imbalance, dyspne a on exertion at 10-20 feet, chest pain, and leg edema. He was admitted to the hospital yesterday wi th chest pain and a borderline troponin. An updated echo done in August of 2016 demonstrates an LVE F of 32% with mild aortic, mild mitral, and mild tricuspid insufficiency with moderate concentric lef t ventricular hypertrophy and an estimated PA systolic pressure of 42 mmHg. A left heart catheteriza tion yesterday demonstrates mild to moderate nonobstructive coronary artery disease with an LVEDP of 36 mmHg. He still feels tired and has imbalance. He is no longer having chest pain but is still ash rt of breath walking across his hospital room. He was on amlodipine as his main blood pressure medic ine until this hospitalization. PAST MEDICAL HISTORY: Permanent atrial fibrillation with sick sinus syndrome and pacemaker, hyperten kim, hyperlipidemia, mild to moderate coronary artery disease, previous prostate cancer, and chronic hip arthritis. PAST SURGICAL HISTORY: Permanent pacemaker in April of 2016, prostatectomy, and multiple hip verónica geries. CURRENT MEDICATIONS: Aspirin 81 mg per day, Atorvastatin 40 mg per day, Eliquis and Lasix 20 mg IV x 1. ALLERGIES: No known drug allergies. SOCIAL HISTORY: Patient is . He does not smoke or use alcohol. FAMILY HISTORY: Unremarkable for premature coronary artery disease. REVIEW OF SYSTEMS: Patient reports no recent fevers, chills, weight gain, or weight loss. He has no TIA or CVA symptoms. Rest of 10-point review of systems is negative. PHYSICAL EXAM: VITAL SIGNS: Afebrile. Pulse 60 and irregularly irregular, blood pressure 124/70, r espirations 24. Weight 87.0 kg. GENERAL: An older-appearing gentleman in no acute distress without chest pain or using accessory respiratory muscles. NECK: Jugular venous pressure is 7-8 cm. Carot id pulses 2+ bilaterally with no obvious bruits. LUNGS: Occasional crackles at the bases bilaterall y with no obvious wheezes. HEART: Normal PMI. Irregularly irregular rhythm with 1/6 nonradiating s ystolic murmur and no S3. ABDOMEN: Soft and nontender. No guarding or rebound. No ascites. No he patosplenomegaly. EXTREMITIES: Two plus peripheral pulses including femoral and pedal pulses. One plus bilateral pretibial edema. MUSCULOSKELETAL: Moderate kyphosis. NEURO: Normal affect and mood . SKIN: No bleeding or cyanosis. No nuchal rigidity. LABS: White count 11.4, hematocrit 43, platelets 229,000, MCV 90. Sodium 140, potassium 4.4, chlori de 103, bicarb 27, BUN 20, creatinine 1.0, glucose 115. Troponin 0.05. INR 1.5. IMPRESSION: An 86-year-old gentleman with chronic atrial fibrillation and sick sinus syndrome with a pacemaker with new acute systolic heart failure with a left ventricular ejection fraction of 32% and moderate hyperkalemia. RECOMMENDATIONS: 1. Would stop his home amlodipine and start on lisinopril and carvedilol as done today. 2. Would put him on Lasix 20 mg IV q.12 hours. 3. Would start Aldactone 25 mg per day. 4. Would interrogate his pacemaker and make sure he is not having any occult tachyarrhythmia such as atrial fibrillation or pacemaker-induced tachycardia. On telemetry, he has mostly been in atrial fi brillation in the 60s to 70 beats per minute. 5. Would check a random cortisol level to make sure there is no evidence of adrenal insufficiency co ntributing to his tiredness and hypotension. 6. Would check a BNP level and a TSH level. 7. Overall, feel he is probably holding on to about 5-7 pounds of excess fluid through his abdomen a nd body. Would recommend IV Lasix for several more days and then transition him to p.o. Lasix and d ischarged home probably in 2-3 days. We will arrange close followup in the [facility] within 5-7 days from discharge. Thank you for allowing me to participate in the care of this patient. /[id number]/MODL
[2016-09-24] MEDS ORDERED: LORazepam 1 MG TAB PO ONE (18:00)
[2016-09-24] MEDS: CARVEDILOL 6.25 MG TAB PO SCH (18:39)
[2016-09-25] MEDS: NITROGLYCERIN 2% 1 GM PACKET TP SCH ×4 (00:51→17:18)
[2016-09-25 04:46] LABS: % IMMATURE GRANULYOCYTES 0.6 % (0.0-1.1); ABSOLUTE IMMATURE GRANULOCYTES 0.05 10^3/uL (0.00-0.10); ADD DIFF? NO; ADD MORPH? NO; ADD SCAN? NO; ATYPICAL LYMPHOCYTE FLAG 0 (0-99); FRAGMENT RBC FLAG 0 (0-99); HEMATOCRIT 35.9 % (40.0-51.0); HEMOGLOBIN 11.8 g/dL (13.7-17.5); LEFT SHIFT FLG 0 (0-99); LIPEMIA HEMOLYSIS FLAG 80 (0-99); MEAN CELL HEMOGLOBIN 29.4 pg (27.9-34.1); MEAN CELL HEMOGLOBIN CONCENTR. 32.9 g/dL (32.4-36.7); MEAN CELL VOLUME 89.3 fL (81.5-99.8); PLATELET CLUMPS FLAG 0 (0-99); PLATELET COUNT 156 10^3/uL (150-400); RED BLOOD CELL COUNT 4.02 10^6/uL (4.40-6.38); RED CELL DISTRIBUTION WIDTH 13.4 % (11.5-15.2)
[2016-09-25 04:48] LABS: ANION GAP 5 mEq/L (8-16); CALCIUM 8.7 mg/dL (8.5-10.4); CARBON DIOXIDE 30 mEq/l (22-31); CHLORIDE 103 mEq/L (97-110); CREATININE 0.9 mg/dL (0.7-1.3); GLOMERULAR FILTRATION RATE > 60; GLUCOSE 111 mg/dL (70-100); POTASSIUM 3.9 mEq/L (3.5-5.2); SODIUM 138 mEq/L (134-144)
[2016-09-25 05:18] LABS: CORTISOL-AM 7.5 ug/dL (4.5-22.7)
[2016-09-25] MEDS: METHIMAZOLE 5 MG TAB PO SCH ×2 (10:16→21:03)
[2016-09-25] MEDS: SPIRONOLACTONE 25 MG TAB PO SCH (10:18)
[2016-09-25] MEDS: LISINOPRIL 5 MG TAB PO SCH (10:19)
[2016-09-25] MEDS: ATORVASTATIN CALCIUM 40 MG TAB PO SCH (10:19)
[2016-09-25] MEDS: lamoTRIgine 100 MG TAB PO SCH ×2 (10:19→21:03)
[2016-09-25] MEDS: ASPIRIN 81 MG CHEWABLE TAB PO SCH (10:20)
[2016-09-25] MEDS: FAMOTIDINE 20 MG TAB PO SCH ×2 (10:20→21:03)
[2016-09-25] MEDS: FUROSEMIDE 20 MG/2 ML VIAL IVP SCH (10:21)
[2016-09-25] MEDS: CARVEDILOL 6.25 MG TAB PO SCH ×2 (10:24→17:17)
[2016-09-25] MEDS: FUROSEMIDE 40 MG TAB PO SCH (10:24)
--- NOTE | 2016-09-25 10:40 | SOAPPROG ---
BHARAT Progress Note Assessment/Plan: 1. NICM - Pt presents with a new diagnosis of a NICM - His LVEF is approximately 25 to 30% with multiple segmental wall motion abnormalities. Angiogram on 09/23 with moderate non-obstructive CAD. Echocardiogram on 09/23 with no significant valvular abnormalities. Pt is s/p recent pacemaker placement for SSS. ? related to A-fib vs pacemaker vs other. --> Pacemaker base rate decreased on 09/23 to 45 BPM --> TSH, Fe, TIBC, and Ferretin ordered --> Appreciate Dr. Mccallum's input 2. CHF - Pt presents with acute systolic CHF exacerbation. 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 Symptoms improved with diuresis. --> Continue coreg and lisinopril --> Continue diuresis with goal net negative 1 L over next 24 hrs 3. CAD - Pt has mild to moderate CAD with out flow limitation. --> Continue secondary prevention with asa, coreg, lisinopril, and atorvastatin. 4. A-fib - Pt has persistent A-fib. He is managed with a rate control and anticoagulation strategy. Pt is currently rate controlled --> Resume eluiquis today. 09/25/16 10:43 Subjective: No chest pain No orthopnea or PND + edema Objective: Vital Signs Temp Pulse Resp BP Pulse Ox 36.3 C 57 L 20 143/90 H 94 09/25/16 08:55 09/25/16 08:55 09/25/16 08:55 09/25/16 08:55 09/25/16 08:55 Laboratory Results 09/25/16 04:26 09/25/16 04:26 09/24/16 09/25/16 09/26/16 05:59 05:59 05:59 Intake Total 396 1358 Output Total 675 1000 125 Balance -279 358 -125 PT 18.1 SEC (12.0-15.0) H 09/23/16 04:20 INR 1.50 (0.83-1.16) H 09/23/16 04:20 Physical Exam - Physical Exam General Appearance: alert, no apparent distress Respiratory: lungs clear Cardiac/Chest: irregularly irregular Abdomen: normal bowel sounds, non-tender, soft Skin: normal color Extremities: other (L greater than R edema) Neuro/Psych: alert ICD10 Worksheet Patient Problems: Problems Problem Status Diagnosed Chest pain Acute Near syncope Acute Sick sinus syndrome Acute
--- NOTE | 2016-09-25 14:15 | HOSPPROG ---
Hospitalist Progress Note Assessment/Plan: 86 yo M w/hx of a fib/sss s/p PM presenting with chest pain and elevated trop # ACS: presumably with supply/demand mismatch with left sided chest pain and trop elevation on admission, dynamic ecg changes. s/p cath with diffuse non obstructive cad found, no intervention. Currently cp free, on nitro gtt. # acute systolic heart failure: with most recent EF of 30%, slightly volume overloaded on exam, transitioned to oral lasix today and will monitor overnight , if still doing well will likely dc home in am on current regimen. Will evaluate in 90 days to determine need for bivICD # permanent a fib/sss: with PPM in place, switched from metoprolol to carvedilol # gait instability/fatigue: patient notes this has been going on for months, pt to evaluate, cortisol level wnl, tsh wnl, b12 wnl, a1c pending. # cad: non obstructive disease noted on cath, no intervention needed # htn: bb, lisinopril and dc amlodipine # hld: continue statin # dispo: IP status, high risk given presenting issues, likely dc on 09/26 Reviewed care plan with cardiology as above, further hx obtained from patients present at bedside. Subjective: no significant overnight events, patient feeling well today, still with some unsteadiness and not as mentally sharp as usual Objective: Vital Signs Temp Pulse Resp BP Pulse Ox 36.9 C 50 L 25 H 111/59 L 95 09/25/16 11:33 09/25/16 11:33 09/25/16 11:33 09/25/16 11:33 09/25/16 11:33 Laboratory Results 09/25/16 04:26 09/25/16 04:26 09/24/16 09/25/16 09/26/16 05:59 05:59 05:59 Intake Total 396 1358 Output Total 675 1000 125 Balance -279 358 -125 PT 18.1 SEC (12.0-15.0) H 09/23/16 04:20 INR 1.50 (0.83-1.16) H 09/23/16 04:20 awake alert nad anicteric op clear rrr systolic murmur cta dec bs at bases soft nt nd 1+ ble edema warm dry well perfused oriented appropriate - Time Spent With Patient Time Spent with Patient: greater than 35 minutes Time Spent with Patient: Greater than 35 minutes spent on this patients care, greater than 50% of time spent counseling, educating, and coordinating care regarding the above mentioned plan. ICD10 Worksheet Patient Problems: Problems Problem Status Diagnosed Chest pain Acute Near syncope Acute Sick sinus syndrome Acute
[2016-09-25] MEDS: APIXABAN 5 MG TAB PO SCH (21:03)
[2016-09-26] MEDS: NITROGLYCERIN 2% 1 GM PACKET TP SCH ×3 (00:39→12:31)
[2016-09-26 04:37] LABS: % IMMATURE GRANULYOCYTES 0.3 % (0.0-1.1); ABSOLUTE IMMATURE GRANULOCYTES 0.03 10^3/uL (0.00-0.10); ADD DIFF? NO; ADD MORPH? NO; ADD SCAN? NO; ATYPICAL LYMPHOCYTE FLAG 0 (0-99); FRAGMENT RBC FLAG 0 (0-99); HEMATOCRIT 37.5 % (40.0-51.0); HEMOGLOBIN 12.3 g/dL (13.7-17.5); LEFT SHIFT FLG 0 (0-99); LIPEMIA HEMOLYSIS FLAG 80 (0-99); MEAN CELL HEMOGLOBIN 29.9 pg (27.9-34.1); MEAN CELL HEMOGLOBIN CONCENTR. 32.8 g/dL (32.4-36.7); MEAN CELL VOLUME 91.2 fL (81.5-99.8); MEAN PLATELET VOLUME 10.6 fL (8.7-11.7); PLATELET CLUMPS FLAG 0 (0-99); PLATELET COUNT 178 10^3/uL (150-400); RED BLOOD CELL COUNT 4.11 10^6/uL (4.40-6.38); RED CELL DISTRIBUTION WIDTH 13.2 % (11.5-15.2)
[2016-09-26 04:53] LABS: ANION GAP 4 mEq/L (8-16); CALCIUM 8.7 mg/dL (8.5-10.4); CARBON DIOXIDE 30 mEq/l (22-31); CHLORIDE 104 mEq/L (97-110); GLOMERULAR FILTRATION RATE > 60; GLUCOSE 112 mg/dL (70-100); POTASSIUM 4.2 mEq/L (3.5-5.2); SODIUM 138 mEq/L (134-144)
[2016-09-26 07:30] VITALS: BP 122/71; PULSE 50; RESP 14; TEMP 97.3; O2SAT 94
[2016-09-26] MEDS: METHIMAZOLE 5 MG TAB PO SCH (10:03)
[2016-09-26] MEDS: ATORVASTATIN CALCIUM 40 MG TAB PO SCH (10:03)
[2016-09-26] MEDS: SPIRONOLACTONE 25 MG TAB PO SCH (10:04)
[2016-09-26] MEDS: lamoTRIgine 100 MG TAB PO SCH (10:04)
[2016-09-26] MEDS: LISINOPRIL 5 MG TAB PO SCH (10:04)
[2016-09-26] MEDS: APIXABAN 5 MG TAB PO SCH (10:04)
[2016-09-26] MEDS: ASPIRIN 81 MG CHEWABLE TAB PO SCH (10:04)
[2016-09-26] MEDS: FAMOTIDINE 20 MG TAB PO SCH (10:04)
[2016-09-26] MEDS: FUROSEMIDE 40 MG TAB PO SCH (10:05)
[2016-09-26] MEDS: CARVEDILOL 6.25 MG TAB PO SCH (10:05)
--- NOTE | 2016-09-26 10:09 | PDIAF ---
- Diagnosis Code Status: Full Code - Medication Management Discharge Medications: Medications to Continue on Transfer Apixaban [Eliquis] 5 mg PO BID 02/26/16 [Last Taken 09/22/16] Fluticasone Nasal [Flonase Nasal [place]] 2 sprays NASAL DAILY PRN 02/26/16 [Last Taken 01/29/16 09:00] Methimazole [Tapazole 5MG (*)] 2.5 mg PO BID 05/15/16 [Last Taken 09/22/16] lamoTRIgine [LamICTAL 100 MG (*)] 100 mg PO BID 05/15/16 [Last Taken 09/22/16] Albuterol [Proventil Inhaler HFA (*)] 1 puffs IH Q6H PRN 09/23/16 [Last Taken ] Fluticasone Hfa 110 Mcg [Flovent 110 MCG Hfa MDI (*)] 1 puffs IH DAILY PRN 09/23 [Last Taken 09/13/16] Acetaminophen [Tylenol 325mg (*)] 650 mg PO Q4HRS PRN #0 tab 09/26/16 [Last Taken Unknown] Aspirin [Aspirin 81mg (*)] 81 mg PO DAILY #30 tab.chew 09/26/16 [Last Taken Unknown] Atorvastatin Calcium [Lipitor 40 mg (*)] 40 mg PO DAILY #30 tab 09/26/16 [Last Taken Unknown] Carvedilol [Coreg (*)] 6.25 mg PO BIDMEAL #60 tab 09/26/16 [Last Taken Unknown] Famotidine [Pepcid 20 MG (*)] 20 mg PO BID #60 tab 09/26/16 [Last Taken Unknown] Furosemide [Lasix 40 MG (*)] 40 mg PO DAILY #30 tab 09/26/16 [Last Taken Unknown ] Lisinopril [Zestril 5 mg (*)] 5 mg PO DAILY #30 tab 09/26/16 [Last Taken Unknown ] Spironolactone [Aldactone 25 MG (*)] 25 mg PO DAILY #30 tab 09/26/16 [Last Taken Unknown] Discharge Medications: Refer to the Discharge Home Medication list for PRN reason. - Orders Services needed: Home Care, Registered Nurse, Physical Therapy, Occupational Therapy Home Care Face to Face: I certify that this patient was under my care and that I had the required [id number] encounter meeting the encounter requirements on the discharge day. My findings support the fact that the patient is homebound as defined in CMS Chapter 7 Medicare Benefits Manual 30.1.1, The condition of the patient is such that there exists a normal inability to leave home and consequently, leaving home would require a considerable and taxing effort. Diet Recommendation: cardiac -low fat low salt Weigh Patient: weekly - Labs/Radiology BMP Date: 09/28/16 - Follow Up Care Current Providers and Referrals: Salas Angel MD [Primary Care Provider] - As per Instructions
--- NOTE | 2016-09-26 12:33 | SOAPPROG ---
BHARAT Progress Note Assessment/Plan: 1. NICM - Pt presents with a new diagnosis of a NICM - His LVEF is approximately 25 to 30% with multiple segmental wall motion abnormalities. Angiogram on 09/23 with moderate non-obstructive CAD. Echocardiogram on 09/23 with no significant valvular abnormalities. No evidence of hypothyroidism or iron overload. Pt is s/p recent pacemaker placement for SSS. ? related to pacemaker vs a-fib vs other. --> Pacemaker base rate decreased on 09/23 to 45 BPM --> Appreciate Dr. Shelby's input 2. CHF - Pt presents with acute systolic CHF exacerbation. 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 Symptoms improved with diuresis. Weight remains stable with transition to PO lasix. Mild pre-renal azotemia and contraction alkalosis. --> Continue coreg and lisinopril --> Continue gentle diuresis with lasix 40 mg po daily. --> chem 7 prior to appointment with Dr. Shelby next week --> Ok to DC from cardiac stand point. 3. CAD - Pt has mild to moderate CAD with out flow limitation. --> Continue secondary prevention with asa, coreg, lisinopril, and atorvastatin. 4. A-fib - Pt has persistent A-fib. He is managed with a rate control and anticoagulation strategy. Pt is currently rate controlled --> Continue current therapy. Subjective: No chest pain No orthopnea or PND dyspnea at baseline Objective: Vital Signs Temp Pulse Resp BP Pulse Ox 36.3 C 50 L 14 122/71 H 94 09/26/16 07:29 09/26/16 07:29 09/26/16 07:29 09/26/16 07:29 09/26/16 07:29 Laboratory Results 09/26/16 04:23 09/26/16 04:23 09/25/16 09/26/16 09/27/16 05:59 05:59 05:59 Intake Total 1358 1294 Output Total 1000 950 Balance 358 344 PT 18.1 SEC (12.0-15.0) H 09/23/16 04:20 INR 1.50 (0.83-1.16) H 09/23/16 04:20 Physical Exam - Physical Exam General Appearance: alert, no apparent distress Respiratory: lungs clear Cardiac/Chest: irregularly irregular Abdomen: non-tender, soft Skin: normal color Extremities: pedal edema ICD10 Worksheet Patient Problems: Problems Problem Status Diagnosed Chest pain Acute Near syncope Acute Sick sinus syndrome Acute
--- NOTE | 2016-09-26 16:20 | PDDCSUM ---
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 CP free. # acute systolic heart failure: EF of 25-30% and slight volume overload, transitioned from IV to oral lasix and nearing euvolemia. 2/2 AF or pacemaker mediated. Will f/u with cardiology in 1 week. # gait instability/fatigue: w/u including tsh, cortisol, b12 all negative. Improved and likely rleated to above. # permanent AF: continue rate control with coreg and apixiban for AC # cad: non obstructive disease noted on cath, no intervention needed # htn: bb, lisinopril and dc amlodipine # hld: continue statin # hyperthyroid: continue methimazole D/C home with home health F/u BMP in 2 days, f/u with cardiology in next week > 35 minutes spent in care of this patient, more than half in coordination of care
[2016-09-27 03:25] LABS: HEMOGLOBIN A1C 5.9 % (4.0-6.0)
== END 2016-09-26 14:44 | disposition home health service (06) | DRG 286 ==
LOC: F2W 11:53 → OBSVTOIN 13:33
PROVIDERS: ADMIT Hospitalist; ATTEND Internal Medicine
PROC: B2111ZZ Fluoroscopy of Multiple Coronary Arteries using Low Osmolar Contrast (ICD-10-PCS; principal; 2016-09-23)
PROC: 4A023N7 Measurement of Cardiac Sampling and Pressure, Left Heart, Percutaneous Approach (ICD-10-PCS; principal; 2016-09-23)
PROC: B2151ZZ Fluoroscopy of Left Heart using Low Osmolar Contrast (ICD-10-PCS; principal; 2016-09-23)
DX: I25.9 Chronic ischemic heart disease, unspecified (principal); I50.21 Acute systolic (congestive) heart failure; I42.8 Other cardiomyopathies; I48.2 Chronic atrial fibrillation; I25.10 Atherosclerotic heart disease of native coronary artery without angina pectoris; I11.0 Hypertensive heart disease with heart failure; E78.5 Hyperlipidemia, unspecified; G47.33 Obstructive sleep apnea (adult) (pediatric); Z95.0 Presence of cardiac pacemaker; Z99.81 Dependence on supplemental oxygen; Z85.46 Personal history of malignant neoplasm of prostate
CPT/HCPCS: 82607-90; 97161-GP; 97165-GO; 97535-GO; G8978-GP-CK; G8979-GP-CJ; G8987-GO-CK; G8988-GO-CI; J1644; J2250; J2405; J2765; J3010; Q9967

== ENCOUNTER 2016-10-21 09:47 | Outpatient (CLI) | payer OTHER ==
[2016-10-21] MEDS ORDERED: COSYNTROPIN 0.25 MG/2 ML SYRINGE IVP ONE (10:30)
== END 2016-10-21 12:00 | disposition home or self-care (01) ==
LOC: FCATH 09:47
PROVIDERS: ATTEND Internal Medicine Cardiovascular Disease
DX: I48.91 Unspecified atrial fibrillation (principal); I50.22 Chronic systolic (congestive) heart failure; I95.9 Hypotension, unspecified
CPT/HCPCS: J0834

== ENCOUNTER → 2017-01-20 | Outpatient (CLI) | payer OTHER | LOC: BHFA 14:00 | PROVIDERS: ATTEND Internal Medicine Cardiovascular Disease | DX: I50.9 Heart failure, unspecified (principal); I48.91 Unspecified atrial fibrillation ==

== ENCOUNTER 2017-07-09 15:56 | Emergency (ER) | payer OTHER ==
[2017-07-09 16:44] LABS: COLOR YELLOW; LEUKOCYTE ESTERASE,URINE 3+ (NEGATIVE); NITRITE,URINE POSITIVE (NEGATIVE)
[2017-07-09 17:04] LABS: BACTERIA TRACE /hpf (NONE SEEN); MUCUS TRACE /lpf (NONE-1+); WBC,URINE 50-182 /hpf (0-3)
--- NOTE | 2017-07-09 17:13 | EDPHY ---
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 prostate CA, asthma. sz, asthma, a fib, pacemaker implanted - Social History Smoking Status: Never smoked Constitutional: Initial Vital Signs Temperature (C) 37 C 07/09/17 16:08 Heart Rate 107 H 07/09/17 16:08 Respiratory Rate 20 07/09/17 16:08 Blood Pressure 96/56 L 07/09/17 16:08 O2 Sat (%) 92 07/09/17 16:08 O2 Delivery Mode Room Air Allergies/Adverse Reactions: Sulfa (Sulfonamide Antibiotics) Allergy (Severe, Verified 05/15/16 22:15) Swelling/neck,face,throat sulfamethoxazole [From Bactrim] Allergy (Severe, Verified 05/15/16 22:15) Swelling/neck,face,throat trimethoprim [From Bactrim] Allergy (Severe, Verified 05/15/16 22:15) Swelling/neck,face,throat chloromycetin Allergy (Unknown, Uncoded 05/15/16 22:15) Unknown Home Medications: Medication Instructions Recorded Apixaban [Eliquis] 5 mg PO BID 02/26/16 Fluticasone Nasal [Flonase Nasal 2 sprays NASAL DAILY PRN 02/26/16 [place]] Methimazole [Tapazole 5MG (*)] 2.5 mg PO BID 05/15/16 lamoTRIgine [LamICTAL 100 MG (*)] 100 mg PO BID 05/15/16 Albuterol [Proventil Inhaler HFA 1 puffs IH Q6H PRN 09/23/16 (*)] Fluticasone Hfa 110 Mcg [Flovent 1 puffs IH DAILY PRN 09/23/16 110 MCG Hfa MDI (*)] Acetaminophen [Tylenol 325mg (*)] 650 mg PO Q4HRS PRN #0 tab 09/26/16 Aspirin [Aspirin 81mg (*)] 81 mg PO DAILY #30 tab.chew 09/26/16 Atorvastatin Calcium [Lipitor 40 40 mg PO DAILY #30 tab 09/26/16 mg (*)] Carvedilol [Coreg (*)] 6.25 mg PO BIDMEAL #60 tab 09/26/16 Famotidine [Pepcid 20 MG (*)] 20 mg PO BID #60 tab 09/26/16 Furosemide [Lasix 40 MG (*)] 40 mg PO DAILY #30 tab 09/26/16 Lisinopril [Zestril 5 mg (*)] 5 mg PO DAILY #30 tab 09/26/16 Spironolactone [Aldactone 25 MG 25 mg PO DAILY #30 tab 09/26/16 (*)] AMOXICILLIN 07/09/17 levOFLOXACIN [levAQUIN 750 MG (RX)] 750 mg PO DAILY #10 tab 07/09/17 Medical Decision Making ED Course/Re-evaluation: CHIEF COMPLAINT: Urinary retention, abdominal and back pain HISTORY OF PRESENT ILLNESS: The patient is a 87 y/o male complaining of back and abdominal pain. He recently had a tooth pulled and was started on Vicodin. Last night he noticed pain in his back, near his kidney on the right side. Today the pain had moved into his right lower quadrant. The pain does not worsen or improve with palpation. He has associated dysuria and urinary retention. He denies pain in his groin or other associated symptoms. REVIEW OF SYSTEMS: A 10 point review of systems was performed and is negative with the exception of the elements mentioned in the history of present illness. PHYSICAL EXAM: HR, BP, O2 Sat, RR. Temp noted General Appearance: Alert, well hydrated, appropriate, and non-toxic appearing. Head: Atraumatic without scalp tenderness or obvious injury Eyes: Pupils equal, round, reactive to light and accommodation, EOMI, no trauma , no injection. Ears: Clear bilaterally, no perforation, normal landmarks Nose: Atraumatic, no rhinorrhea, clear. Throat: There is no erythema or exudates, no lesions, normal tonsils, mucus membranes moist. Neck: Supple, nontender, no lymphadenopathy. Respiratory: No retractions, no distress, no wheezes, and no accessory muscle use. Lungs are clear to auscultation bilaterally. Cardiovascular: Regular rate and rhythm, no murmurs, rubs, or gallops. Good capillary refill all extremities. Gastrointestinal: Abdomen is soft, nontender, non-distended, no masses, no rebound, no guarding, no peritoneal signs. Musculoskeletal: Normal active ROM of all extremities, atraumatic. Neurological: Alert, appropriate, and interactive. Skin: No rashes, good turgor, no nodules on palpation. Past medical history: Recently started on Vicodin for a tooth removal Past surgical history: Prostate removal Family history: Non-contributory Social history: at bedside, lives in [place], retired DIAGNOSTICS/PROCEDURES/CRITICAL CARE TIME: DIFFERENTIAL DIAGNOSIS: The differential diagnosis for the patient's urinary retention included but was not limited to medication side effect, neurologic causes, outflow obstruction, and infection. MEDICAL DECISION MAKING: The patient is a 87 y/o male complaining of back pain, abdominal pain, and urinary retention after starting Vicodin. He recently had a tooth removed and took Vicodin. Last night he began experiencing pain in his back near his kidney. The pain moved to the front of his body. He has associated urinary retention and dysuria. I suspect infection secondary to urinary retention due to Vicodin. Plan for antibiotics and discharge. - Data Points Laboratory Results: 07/09/17 16:15 Urine Color YELLOW Urine Appearance MODERATELY TURBID Urine pH 5.0 (5.0-7.5) Ur Specific [place] 1.010 (1.002-1.030) Urine Protein 1+ H (NEGATIVE) Urine Ketones NEGATIVE (NEGATIVE) Urine Blood 2+ H (NEGATIVE) Urine Nitrate POSITIVE H (NEGATIVE) Urine Bilirubin NEGATIVE (NEGATIVE) Urine Urobilinogen NEGATIVE EU EU (0.2-1.0) Ur Leukocyte Esterase 3+ H (NEGATIVE) Urine RBC 1-3 /hpf /hpf (0-3) Urine WBC 50-182 /hpf H /hpf (0-3) Ur Epithelial Cells NONE SEEN /lpf /lpf (NONE-1+) Urine Bacteria TRACE /hpf H /hpf (NONE SEEN) Urine Mucus TRACE /lpf /lpf (NONE-1+) Urine Glucose NEGATIVE (NEGATIVE) Medications Given: Discontinued Medications Levofloxacin/Dextrose (Levaquin 750 Mg (Premix)) 150 mls @ 100 mls/hr IV EDNOW ONE PRN Reason: Protocol Stop: 07/09/17 18:45 Last Admin: 07/09/17 17:40 Dose: 150 mls Departure - Departure Disposition: Home, Routine, Self-Care Clinical Impression: Urinary retention Urinary tract infection Qualifiers: Urinary tract infection type: acute cystitis Hematuria presence: without hematuria Qualified Code(s): N30.00 - Acute cystitis without hematuria Condition: Good Instructions: Urinary Tract Infection in Men (ED) Additional Instructions: 1. Take Levaquin as directed. Take the full course even if you have improvement of symptoms. 2. Follow-up with your primary care provider for unimproved symptoms in 2-3 days. 3. Return to the ED for worsening condition. Referrals: Salas Angel MD [Primary Care Provider] - As per Instructions Prescriptions: levOFLOXACIN [levAQUIN 750 MG (RX)] 750 mg PO DAILY #10 tab Report Scribed for: Herminio Richards Report Scribed by: Rachel Arroyo Date of Report: 07/09/17 Time of Report: 17:44
[2017-07-09 19:05] VITALS: BP 142/93; PULSE 56; RESP 16; TEMP 97.9; O2SAT 93
== END 2017-07-09 19:15 | disposition home or self-care (01) ==
DX: N30.00 Acute cystitis without hematuria (principal); B96.89 Other specified bacterial agents as the cause of diseases classified elsewhere; I10 Essential (primary) hypertension; J45.909 Unspecified asthma, uncomplicated; Z79.82 Long term (current) use of aspirin; Z85.46 Personal history of malignant neoplasm of prostate; Z95.0 Presence of cardiac pacemaker
CPT/HCPCS: 96365; 99284; J1956

== ENCOUNTER → 2017-11-24 | Outpatient (CLI) | payer OTHER | LOC: FIMAGING 13:27 | PROVIDERS: ATTEND Internal Medicine | DX: I51.7 Cardiomegaly (principal) ==

== ENCOUNTER → 2018-06-29 | Outpatient (CLI) | payer OTHER | LOC: FIMAGING 13:03 | PROVIDERS: ATTEND Internal Medicine | DX: R91.8 Other nonspecific abnormal finding of lung field (principal); K86.1 Other chronic pancreatitis ==

== ENCOUNTER 2018-07-15 01:09 | Emergency (ER) | payer OTHER ==
[2018-07-15] MEDS ORDERED: ACETAMINOPHEN 500 MG TAB PO ONE (01:26)
--- NOTE | 2018-07-15 01:42 | EDPHY ---
H & P Stated Complaint: fell down stairs in house no LOC left hip pain Time Seen by Provider: 07/15/18 01:16 HPI/ROS: Chief Complaint: Fall, head injury, hip pain HPI: 88-year-old male had a mechanical fall down stairs about 5 hr ago. Patient states he lost his balance and tumbled down a flight of carpeted stairs. He did sustain abrasion on his head on his arms and his left hip. Since that time he has been having worsening left hip pain. He has history of atrial fibrillation in [facility]. He does have a history of hip replacement on that side with multiple revisions. He has been ambulating. No numbness or weakness. No headache. No nausea or vomiting. No neck pain. He has not taken any pain medicine. ROS: 10 systems were reviewed and were negative except those elements noted in the HPI. PMH: Atrial fibrillation, pacemaker placement, hip replacement Social History: No smoking, no alcohol, no recreational drug use Family History: non-contributory Physical Exam: Gen: Awake, Alert, Airway Intact HEENT: Head: Small abrasion on his scalp, no bony tenderness or crepitus Eyes: PERRLA, EOMI Nose: No epistaxis Mouth: Normal dentition, Airway patent Face: No deformity Neck: non-tender, no stepoff, Full ROM without pain Chest: non-tender, lungs CTA Heart: normal heart tones Abd: soft, non-tender, atraumatic Pelvis: non-tender, stable to AP and Lateral compression Back: atraumatic, no midline tenderness Ext: Patient has tenderness over his left lateral hip and proximal lateral thigh. There is a palpable hematoma. There is also ecchymosis. Compartments are soft., full ROM. Patient has several small skin tears on his left forearm. Full range of motion. No bony tenderness or deformity. 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 prostate CA, asthma. sz, asthma, a fib, pacemaker implanted - Social History Smoking Status: Never smoked Constitutional: Initial Vital Signs Temperature (C) 36.7 C 07/15/18 01:10 Heart Rate 54 L 07/15/18 01:10 Respiratory Rate 16 07/15/18 01:10 Blood Pressure 124/56 H 07/15/18 01:10 O2 Sat (%) 97 07/15/18 01:10 O2 Delivery Mode Room Air Allergies/Adverse Reactions: Sulfa (Sulfonamide Antibiotics) Allergy (Severe, Verified 07/15/18 01:13) Swelling/neck,face,throat sulfamethoxazole [From Bactrim] Allergy (Severe, Verified 07/15/18 01:13) Swelling/neck,face,throat trimethoprim [From Bactrim] Allergy (Severe, Verified 07/15/18 01:13) Swelling/neck,face,throat chloromycetin Allergy (Unknown, Uncoded 07/15/18 01:13) Unknown Home Medications: Medication Instructions Recorded Apixaban [Eliquis] 5 mg PO BID 02/26/16 Fluticasone Nasal [Flonase Nasal 2 sprays NASAL DAILY PRN 02/26/16 [place]] Methimazole [Tapazole 5MG (*)] 2.5 mg PO BID 05/15/16 lamoTRIgine [LamICTAL 100 MG (*)] 100 mg PO BID 05/15/16 Albuterol [Proventil Inhaler HFA 1 puffs IH Q6H PRN 09/23/16 (*)] Fluticasone Hfa 110 Mcg [Flovent 1 puffs IH DAILY PRN 09/23/16 110 MCG Hfa MDI (*)] Acetaminophen [Tylenol 325mg (*)] 650 mg PO Q4HRS PRN #0 tab 09/26/16 Aspirin [Aspirin 81mg (*)] 81 mg PO DAILY #30 tab.chew 09/26/16 Atorvastatin Calcium [Lipitor 40 40 mg PO DAILY #30 tab 09/26/16 mg (*)] Carvedilol [Coreg (*)] 6.25 mg PO BIDMEAL #60 tab 09/26/16 Famotidine [Pepcid 20 MG (*)] 20 mg PO BID #60 tab 09/26/16 Furosemide [Lasix 40 MG (*)] 40 mg PO DAILY #30 tab 09/26/16 Lisinopril [Zestril 5 mg (*)] 5 mg PO DAILY #30 tab 09/26/16 Spironolactone [Aldactone 25 MG 25 mg PO DAILY #30 tab 09/26/16 (*)] Medical Decision Making - Diagnostics Imaging Results: CT scan of the head is negative for acute injury per Dr. Ryan. Left hip x-ray shows normal alignment of his hip prosthesis, no acute fractures or dislocations per my interpretation. Critical Care Time: 88-year-old male status post fall downstairs. He has no chest or abdomen injury. Does have a left thigh hematoma. It is not tense. No findings suggestive of compartment syndrome. X-rays negative for acute bony abnormality. He is on Eliquis. CT scan of the head is negative. Injury occurred 5 hr ago and he has not have any evidence of acute active bleeding at this time. Remainder is exam is unremarkable. His hemoglobin and hematocrit are at their baseline. Plan will be to discharge with oral analgesia, acetaminophen, ice, follow up with primary care physician for further evaluation. - Data Points Laboratory Results: Laboratory Results 07/15/18 01:34 07/15/18 01:34 07/15/18 07/15/18 01:34 01:34 WBC 11.32 10^3/uL H 10^3/uL (3.80-9.50) RBC 3.46 10^6/uL L 10^6/uL (4.40-6.38) Hgb 10.8 g/dL L g/dL (13.7-17.5) Hct 32.2 % L % (40.0-51.0) MCV 93.1 fL fL (81.5-99.8) MCH 31.2 pg pg (27.9-34.1) MCHC 33.5 g/dL g/dL (32.4-36.7) RDW 12.9 % % (11.5-15.2) Plt Count 198 10^3/uL 10^3/uL (150-400) MPV 10.2 fL fL (8.7-11.7) Neut % (Auto) 80.8 % H % (39.3-74.2) Lymph % (Auto) 6.9 % L % (15.0-45.0) [place] % (Auto) 7.8 % % (4.5-13.0) Eos % (Auto) 3.6 % % (0.6-7.6) Baso % (Auto) 0.5 % % (0.3-1.7) Nucleat RBC Rel Count 0.0 % % (0.0-0.2) Absolute Neuts (auto) 9.14 10^3/uL H 10^3/uL (1.70-6.50) Absolute Lymphs (auto) 0.78 10^3/uL L 10^3/uL (1.00-3.00) Absolute Monos (auto) 0.88 10^3/uL H 10^3/uL (0.30-0.80) Absolute Eos (auto) 0.41 10^3/uL H 10^3/uL (0.03-0.40) Absolute Basos (auto) 0.06 10^3/uL 10^3/uL (0.02-0.10) Absolute Nucleated RBC 0.00 10^3/uL 10^3/uL (0-0.01) Immature Gran % 0.4 % % (0.0-1.1) Immature Gran # 0.05 10^3/uL 10^3/uL (0.00-0.10) Sodium 141 mEq/L mEq/L (135-145) Potassium 4.4 mEq/L mEq/L (3.3-5.0) Chloride 104 mEq/L mEq/L (97-110) Carbon Dioxide 25 mEq/l mEq/l (22-31) Anion Gap 12 mEq/L mEq/L (6-14) BUN 37 mg/dL H mg/dL (7-23) Creatinine 1.6 mg/dL H mg/dL (0.7-1.3) Estimated GFR 41 Glucose 149 mg/dL H mg/dL (70-100) Calcium 9.4 mg/dL mg/dL (8.5-10.4) Departure - Departure Disposition: Home, Routine, Self-Care Clinical Impression: Contusion, Skin tear of forearm without complication, Scalp contusion Condition: Good Instructions: Skin Avulsion (ED), Hematoma (ED) Additional Instructions: Apply ice to the left hip for 15 min of every hour while awake. You may take acetaminophen, 1000 mg 3 times a day for pain. Follow up with primary care physician in 2-3 days for further evaluation. Return to the emergency department for increasing pain, difficulty walking, worsening headache, nausea, vomiting, or any other concerns. Referrals: Salas Angel MD [Primary Care Provider] - As per Instructions
[2018-07-15 01:46] LABS: PLATELET COUNT 198 10^3/uL (150-400)
[2018-07-15 02:38] VITALS: BP 116/67
== END 2018-07-15 02:36 | disposition home or self-care (01) ==
DX: S70.02XA Contusion of left hip, initial encounter (principal); S00.01XA Abrasion of scalp, initial encounter; S50.812A Abrasion of left forearm, initial encounter; I48.91 Unspecified atrial fibrillation; W10.8XXA Fall (on) (from) other stairs and steps, initial encounter; Y92.9 Unspecified place or not applicable; Y93.9 Activity, unspecified; Z96.642 Presence of left artificial hip joint; Z79.01 Long term (current) use of anticoagulants; Z95.0 Presence of cardiac pacemaker

== ENCOUNTER 2018-12-26 12:40 | Observation (INO) | payer OTHER ==
[2018-12-26] MEDS ORDERED: ACETAMINOPHEN 325 MG TAB PO PRN (16:10)
[2018-12-26] MEDS ORDERED: ONDANSETRON DISINTEGRATING 4 MG TAB PO PRN (16:10)
[2018-12-26] MEDS ORDERED: ONDANSETRON 4 MG/2 ML VIAL IVP PRN (16:10)
[2018-12-26] MEDS ORDERED: ALBUTEROL 60 PUFFS/8 GM MDI IH PRN (21:01)
[2018-12-26] MEDS: lamoTRIgine 100 MG TAB PO SCH (21:23)
[2018-12-27] MEDS ORDERED: CARVEDILOL 3.125 MG TAB PO SCH (08:00)
[2018-12-27] MEDS ORDERED: FUROSEMIDE 20 MG TAB PO SCH (09:00)
[2018-12-27] MEDS ORDERED: SPIRONOLACTONE 25 MG TAB PO SCH (09:00)
[2018-12-27] MEDS ORDERED: FAMOTIDINE 20 MG TAB PO SCH (09:00)
[2018-12-27] MEDS ORDERED: ATORVASTATIN CALCIUM 40 MG TAB PO SCH (09:00)
[2018-12-27] MEDS ORDERED: LISINOPRIL 5 MG TAB PO SCH (09:00)
[2018-12-27] MEDS: lamoTRIgine 100 MG TAB PO SCH (09:16)
[2018-12-28] MEDS ORDERED: METHIMAZOLE 5 MG TAB PO SCH (08:00)
== END 2018-12-27 14:45 | disposition home health service (06) ==
DX: S06.6X9A Traumatic subarachnoid hemorrhage with loss of consciousness of unspecified duration, initial encounter (principal); W06.XXXA Fall from bed, initial encounter; Y92.013 Bedroom of single-family (private) house as the place of occurrence of the external cause; I48.91 Unspecified atrial fibrillation; G47.33 Obstructive sleep apnea (adult) (pediatric); E05.90 Thyrotoxicosis, unspecified without thyrotoxic crisis or storm; I10 Essential (primary) hypertension; E78.5 Hyperlipidemia, unspecified; J45.909 Unspecified asthma, uncomplicated; Z79.01 Long term (current) use of anticoagulants; Z95.0 Presence of cardiac pacemaker
CPT/HCPCS: 70450; 70486; 92523; 97116; 97161; 97166; 99285; G0378

== ENCOUNTER 2019-01-20 09:48 | Emergency (ER) | payer OTHER ==
--- NOTE | 2019-01-20 10:11 | EDPHY ---
H & P Time Seen by Provider: 01/20/19 09:55 HPI/ROS: HPI Concerned about DVT in right leg. 88-year-old male by private vehicle with his . This patient has a history of prior DVT. He is currently on Eliquis. He reports that 3:00 a.m. He developed a cramping sensation in his right calf. He reports that he has had cramping in his calf musculature in the past. He reports that he started using oxygen at night and the cramping has been relieved. There is no history of trauma to the right calf. He denies any loss of sensation or weakness distally. He is concerned that he may have developed another DVT in the right calf. ROS: Constitutional: No fever, no chills. No weakness. Respiratory: No cough. As above. Cardiac: No chest pain, no palpitations. Musculoskeletal: No back pain. No neck pain. No myalgias or arthralgias. Skin: No rashes. Neurological: No focal weakness or altered sensation. Past medical history: Total hip replacements, hypertension, Graves disease, prostate cancer, asthma, seizures, atrial fibrillation, prior DVT, pacemaker. Social history: Nonsmoker. Here with his . No alcohol. Physical Exam: General Appearance: Alert, no distress. This patient is responding to questions appropriately and in full sentences. This patient appears well- hydrated and well-nourished. Eyes: Pupils equal and round no pallor or injection. No lid edema, erythema or injection. Right leg exam: There is some tightness palpated in the right mid calf musculature. No palpable cords. No erythema, warmth or edema noted. Negative Rebecca sign. The right lower extremity is neurovascularly intact. No asymmetric swelling noted in comparison to the left lower extremity. Neurological: Motor sensory function is grossly intact. Cranial nerves are normal. Gait is normal. Skin: Warm and dry, no rashes. Musculoskeletal: Neck is supple and nontender. Extremities are symmetrical. All joints range without pain or impingement. Psychiatric: No agitation. No depression. Database: EKG: Imaging: Right lower extremity ultrasound: Negative for DVT SVT in the right lower extremity. Results discussed with staff radiologist Dr. Alex Pena. Procedures: Emergency department course: Triage vital signs reviewed and are normal. The patient is afebrile. After my evaluation right lower extremity ultrasound to be obtained. 10:40 a.m., the patient was re-evaluated, resting comfortably at this time. I discussed results of his right lower extremity ultrasound with him and his . He feels comfortable going home. His presentation is consistent with a calf muscle cramps. He denies any pain or discomfort at this time. The right lower extremity is neurovascularly intact. He feels comfortable being discharged. I have instructed him to continue taking his medications as prescribed. Follow-up and return to emergency department precautions reviewed. All of his questions were answered. He was discharged from the emergency department in good condition with his . Differential Diagnosis: The differential diagnosis on this patient includes but is not limited to calf musculature cramping, DVT. This represents a partial list of diagnoses considered. These considerations are based on history, physical exam, past history, reassessment and diagnostic testing. Smoking Status: Never smoked Constitutional: Initial Vital Signs Temperature (C) 36.8 C 01/20/19 09:50 Heart Rate 61 01/20/19 09:50 Respiratory Rate 16 01/20/19 09:50 Blood Pressure 113/53 L 01/20/19 09:50 O2 Sat (%) 97 01/20/19 09:50 O2 Delivery Mode Room Air Allergies/Adverse Reactions: Sulfa (Sulfonamide Antibiotics) Allergy (Severe, Verified 07/15/18 01:13) Swelling/neck,face,throat sulfamethoxazole [From Bactrim] Allergy (Severe, Verified 07/15/18 01:13) Swelling/neck,face,throat trimethoprim [From Bactrim] Allergy (Severe, Verified 07/15/18 01:13) Swelling/neck,face,throat chloromycetin Allergy (Unknown, Uncoded 07/15/18 01:13) Unknown Home Medications: Medication Instructions Recorded Apixaban [Eliquis] 5 mg PO BID 02/26/16 Methimazole [Tapazole 5MG (*)] 2.5 mg PO MOTH@0800 05/15/16 lamoTRIgine [LamICTAL 100 MG (*)] 100 mg PO BID 05/15/16 Albuterol [Proventil Inhaler HFA 1 - 2 puffs IH Q6H PRN 09/23/16 (*)] Acetaminophen [Tylenol 325mg (*)] 650 mg PO Q4HRS PRN #0 tab 09/26/16 Aspirin [Aspirin 81mg (*)] 81 mg PO DAILY #30 tab.chew 09/26/16 Atorvastatin Calcium [Lipitor 40 40 mg PO DAILY #30 tab 09/26/16 mg (*)] Lisinopril [Zestril 5 mg (*)] 5 mg PO DAILY #30 tab 09/26/16 Carvedilol [Coreg (*)] 3.125 mg PO BIDMEAL 12/26/18 Famotidine [Pepcid 20 MG (*)] 20 mg PO DAILY 12/26/18 Furosemide [Lasix 40 MG (*)] 20 mg PO DAILY 12/26/18 Spironolactone [Aldactone 25 MG 12.5 mg PO DAILY 12/26/18 (*)] Medical Decision Making - Diagnostics Imaging Results: Imaging Impressions Extremity Venous Study 01/20/19 09:55 Impression: No deep venous thrombosis in the right lower extremity. Findings discussed with Jocelynn Deleon MD at 10:45 hour, 01/20/2019. Departure - Departure Disposition: Home, Routine, Self-Care Clinical Impression: Cramp in muscle, Right calf pain Condition: Good Instructions: Leg Cramps (ED) Additional Instructions: Read and follow provided instructions. Follow-up with your primary care physician as needed on Tuesday or Tuesday of this week. Continue taking your medications as prescribed. Return to the emergency department for worsening symptoms, worsening pain, discoloration, swelling, fever, shortness of breath or other serious concerns. Referrals: Salas Angel MD [Primary Care Provider] - As per Instructions
[2019-01-20 11:27] VITALS: BP 106/78
== END 2019-01-20 11:22 | disposition home or self-care (01) ==
DX: R25.2 Cramp and spasm (principal); M79.661 Pain in right lower leg; Z79.01 Long term (current) use of anticoagulants